=== PATIENT | female | born 1990 | race Caucasian/White ===

== ENCOUNTER 2016-07-14 21:28 | Emergency (ER) | payer MEDICAID, OTHER ==
[~2016-07-14] VITALS: Ht 172.7 cm; Wt 122.0 kg
[~2016-07-14 21:28] MED LIST: CITA20TA4 PO; LEVO25TA4 PO; NORE1TAB60 PO
[2016-07-14 21:49] VITALS: BP 131/92; PULSE 88; RESP 16; TEMP 99.1; O2SAT 98
[2016-07-14] MEDS ORDERED: MAGN-23 PO (21:56)
[2016-07-14] MEDS ORDERED: MULTTAB67 PO (21:56)
[2016-07-14] MEDS ORDERED: SODIUM CHLOR 0.9% 1000 ML INJ 1,000 ML IV SCH (22:07)
--- NOTE | 2016-07-14 22:13 | PD ---
HPI Chief Complaint: GI Complaint Time Seen by Provider: 21:56 Travel History International Travel<30 days: No Contact w/Intl Traveler<30days: No Traveled to known affect area: No History of Present Illness HPI 25 years old female complains of low abdominal pain, left side abdominal pain and rectal pain. Patient states that the pain started 2 days ago. Patient states the pain is combination of sharp pain in cramping pain localized on her rectal area, lower abdomen left side abdomen. Patient denies any pain radiation. Patient states that the pain has been constant. Patient noticed rectal bleeding yesterday morning and this evening. Patient denies any fever chills. Patient denies any chest pain or shortness of breath. Patient denies any nausea vomiting diarrhea. Patient denies any back pain. Patient denies any dysuria or frequency. Patient denies any vaginal discharge or bleeding. Patient was seen in emergency room a year ago with abdominal pain and rectal bleeding. Patient was given antibiotics with resolution of the symptoms. PFSH Past Medical History Anxiety: Yes Diabetes: No Diminished Hearing: No Thyroid Disease: Yes (HYPOTHYROIDISM) ?: Not LMP: 06/20/16 : 1 Para: 1 Ovarian Cysts: Yes Past Surgical History Section: Yes Oral Surgery: Yes (WISDOM TEETH) Other Surgery: Yes (CYST REMOVED FROM RIGHT HAND) Social History Alcohol Use: No Tobacco Use: No Substance Use: No Allergies-Medications (Allergen,Severity, Reaction): Coded Allergies: Morphine (Verified Allergy, Intermediate, "hallucinations", 07/14/16) Reported Meds & Prescriptions Reported Meds & Active Scripts Active Bypro (Hydrocodone-Acetaminophen) 5-325 mg Tab 1 Tab PO Q6H PRN Flagyl (Metronidazole) 500 Mg Tab 500 Mg PO TID Cipro (Ciprofloxacin HCl) 500 Mg Tab 500 Mg PO BID Reported [Magnesium Malate] 2 Tab PO DAILY Multiple Vitamin 1 Tab 1 Tab PO DAILY Loestrin 1/20 (Norethindrone-Ethinyl Estradiol) 1-20 Mg-Mcg Tab 1 Tab PO DAILY Citalopram (Citalopram Hydrobromide) 20 Mg Tab 20 Mg PO DAILY Levothyroxine (Levothyroxine Sodium) 25 Mcg Tab 25 Mcg PO DAILY Review of Systems General / Constitutional: No: Fever Eyes: No: Visual changes HENT: No: Headaches Cardiovascular: No: Chest Pain or Discomfort Respiratory: No: Shortness of Breath Gastrointestinal: Positive: Abdominal Pain, Hematochezia Genitourinary: No: Dysuria Musculoskeletal: No: Pain Skin: No Rash Neurologic: No: Weakness Psychiatric: No: Depression Endocrine: No: Polydipsia Hematologic/Lymphatic: No: Easy Bruising Physical Exam Narrative GENERAL: Well-nourished, well-developed patient. SKIN: Focused skin assessment warm/dry. HEAD: Normocephalic. EYES: No scleral icterus. No injection or drainage. NECK: Supple, trachea midline. No JVD or lymphadenopathy. CARDIOVASCULAR: Regular rate and rhythm without murmurs, gallops, or rubs. RESPIRATORY: Breath sounds equal bilaterally. No accessory muscle use. GASTROINTESTINAL: Abdomen soft, nondistended. Patient has mild to moderate tenderness on palpation lower abdomen. No rebound tenderness. No mass. Rectal exam patient has moderate tenderness on palpation perirectal area. Hemoccult negative. No mass noted. No induration or discharge noted rectal area. MUSCULOSKELETAL: No cyanosis, or edema. BACK: Nontender without obvious deformity. No CVA tenderness. Data Data Last Documented VS Vital Signs Date Time Temp Pulse Resp B/P Pulse Ox O2 Delivery O2 Flow Rate FiO2 07/14/16 23:34 98.6 83 16 118/68 99 Room Air Orders Complete Blood Count With Diff (07/14/16 22:07) Comprehensive Metabolic Panel (07/14/16 22:07) Lipase (07/14/16 22:07) Prothrombin Time / Inr (Pt) (07/14/16 22:07) Act Partial Throm Time (Ptt) (07/14/16 22:07) Urinalysis - C+S If Indicated (07/14/16 22:07) Ct Abd/Pel W Iv Contrast(Rout) (07/14/16 22:07) Iv Access Insert/Monitor (07/14/16 22:07) Ecg Monitoring (07/14/16 22:07) Oximetry (07/14/16 22:07) Ondansetron Inj (Zofran Inj) (07/14/16 22:15) Pantoprazole Inj (Protonix Inj) (07/14/16 22:15) Sodium Chlor 0.9% 1000 Ml Inj (Ns 1000 M (07/14/16 22:07) Hydromorphone Pf Inj (Dilaudid Pf Inj) (07/14/16 22:15) Ed Urine Pregnancytest Poc (07/14/16 22:07) Iohexol 350 Inj (Omnipaque 350 Inj) (07/14/16 23:36) Levofloxacin (Levaquin) (07/15/16 00:00) Labs Laboratory Tests Test 07/14/16 22:25 White Blood Count 8.3 TH/MM3 Red Blood Count 4.46 MIL/MM3 Hemoglobin 13.1 GM/DL Hematocrit 37.7 % Mean Corpuscular Volume 84.7 FL Mean Corpuscular Hemoglobin 29.4 PG Mean Corpuscular Hemoglobin 34.8 % Concent Red Cell Distribution Width 12.3 % Platelet Count 256 TH/MM3 Mean Platelet Volume 9.7 FL Neutrophils (%) (Auto) 56.5 % Lymphocytes (%) (Auto) 31.1 % Monocytes (%) (Auto) 6.5 % Eosinophils (%) (Auto) 3.1 % Basophils (%) (Auto) 2.8 % Neutrophils # (Auto) 4.7 TH/MM3 Lymphocytes # (Auto) 2.6 TH/MM3 Monocytes # (Auto) 0.5 TH/MM3 Eosinophils # (Auto) 0.3 TH/MM3 Basophils # (Auto) 0.2 TH/MM3 CBC Comment DIFF FINAL Differential Comment Prothrombin Time 10.4 SEC Prothromb Time International 0.9 RATIO Ratio Activated Partial 26.2 SEC Thromboplast Time Urine Color YELLOW Urine Turbidity CLEAR Urine pH 6.0 Urine Specific [place] 1.010 Urine Protein NEG mg/dL Urine Glucose (UA) NEG mg/dL Urine Ketones NEG mg/dL Urine Occult Blood NEG Urine Nitrite NEG Urine Bilirubin NEG Urine Leukocyte Esterase NEG Urine RBC 0-2 /hpf Urine WBC 0-2 /hpf Urine Squamous Epithelial 0-5 /hpf Cells Urine Bacteria NONE /hpf Microscopic Urinalysis Comment CULT NOT INDICATED Sodium Level 143 MEQ/L Potassium Level 4.0 MEQ/L Chloride Level 108 MEQ/L Carbon Dioxide Level 26.7 MEQ/L Anion Gap 8 MEQ/L Blood Urea Nitrogen 12 MG/DL Creatinine 0.82 MG/DL Estimat Glomerular Filtration 84 ML/MIN Rate Random Glucose 95 MG/DL Calcium Level 9.1 MG/DL Total Bilirubin 0.2 MG/DL Aspartate Amino Transf 13 U/L (AST/SGOT) Alanine Aminotransferase 19 U/L (ALT/SGPT) Alkaline Phosphatase 101 U/L Total Protein 7.2 GM/DL Albumin 3.5 GM/DL Lipase 250 U/L [facility] Medical Decision Making Medical Screen Exam Complete: Yes Emergency Medical Condition: Yes Interpretation(s) 23:26 PM. CBC within normal limit. CMP within normal limit. UA is negative. Differential Diagnosis Differential diagnosis including colitis, enteritis, hemorrhoid, proctitis, perianal abscess. Narrative Course 25 years old female with abdominal pain, rectal pain and rectal bleeding. Normal saline solution 1 25 cc an hour. Dilaudid 1 mg IV. Zofran 4 mg IV. Protonix 40 mg IV. Levaquin 750 mg by mouth given. Diagnosis Primary Impression: Colitis Patient Instructions: General Instructions Additional Instructions: Take medication as directed. Follow-up with personal physician. Return if worse. Follow up with GI specialist. Med/Other Pt SpecificInfo: Prescription(s) given Scripts Hydrocodone-Acetaminophen (Bypro)5-325 mg Tab1 Tab PO Q6H PRN (PAIN) #12 TAB Ref 0 Prov:Jack Henry MD 07/14/16 Metronidazole (Flagyl)500 Mg [id number] Mg PO TID #30 TAB Ref 0 Prov:Jack Henry MD 07/14/16 Ciprofloxacin (Cipro)500 Mg [id number] Mg PO BID #20 TAB Ref 0 Prov:Jack Henry MD 07/14/16 Disposition: 01 DISCHARGE HOME Condition: Stable Jack Henry MD Jul 14, 2016 22:13
[2016-07-14] MEDS ORDERED: PANTOPRAZOLE SODIUM 40 MG VIAL IVP ONE (22:15)
[2016-07-14] MEDS ORDERED: ONDANSETRON HCL 4 MG/2 ML VIAL IVP ONE (22:15)
[2016-07-14] MEDS ORDERED: HYDROmorphone HCL PF 1 MG/ML VIAL IVS ONE (22:15)
[2016-07-14 22:40] LABS: AUTOMATED NEUTROPHIL # 4.7 TH/MM3 (1.8-7.7); BASOPHIL # 0.2 TH/MM3 (0-0.2); BASOPHIL % 2.8 % (0.0-2.0); EOSINOPHIL # 0.3 TH/MM3 (0-0.4); EOSINOPHIL % 3.1 % (0.0-4.0); HEMATOCRIT 37.7 % (35.0-46.0); LYMPH % 31.1 % (9.0-44.0); LYMPHOCYTE # 2.6 TH/MM3 (1.0-4.8); MEAN CELL VOLUME 84.7 FL (80.0-100.0); MEAN CORPUSCULAR HEMOGLOBIN 29.4 PG (27.0-34.0); MEAN CORPUSCULAR HGB CONC 34.8 % (32.0-36.0); MONO % 6.5 % (0.0-8.0); NEUT % 56.5 % (16.0-70.0); PLATELET COUNT 256 TH/MM3 (150-450); RED BLOOD COUNT 4.46 MIL/MM3 (4.00-5.30); RED CELL DISTRIBUTION WIDTH 12.3 % (11.6-17.2); WHITE BLOOD COUNT 8.3 TH/MM3 (4.0-11.0)
[2016-07-14 22:41] LABS: HEMO FLAGS DIFF FINAL
[2016-07-14 22:45] LABS: BLOOD, URINE NEG (NEG); GLUCOSE,URINE NEG (NEG); KETONE, URINE NEG (NEG); NITRITE,URINE NEG (NEG)
[2016-07-14 22:46] VITALS: PULSE 77; RESP 16; O2SAT 98
[2016-07-14 22:47] LABS: CHLORIDE 108 MEQ/L (98-107); SODIUM (NA) 143 MEQ/L (136-145)
[2016-07-14 22:51] LABS: ANION GAP 8 MEQ/L (5-15); BICARBONATE 26.7 MEQ/L (21.0-32.0)
[2016-07-14 22:52] LABS: BLOOD UREA NITROGEN 12 MG/DL (7-18)
[2016-07-14 22:53] LABS: APTT (PATIENT) 26.2 SEC (24.3-30.1); INTERNATIONAL NORMALIZED RATIO 0.9 RATIO; PROTHROMBIN TIME - PATIENT 10.4 SEC (9.8-11.6); RBC, URINE 0-2 /hpf (0-3); SQUAMOUS EPITHELIAL CELL URINE 0-5 /hpf (0-5); URINE COLOR YELLOW (YELLW/STRAW); WBC, URINE 0-2 /hpf (0-5)
[2016-07-14 22:54] LABS: ALT (GPT) 19 U/L (10-53); AST (GOT) 13 U/L (15-37); COMMENT (UR) CULT NOT INDICATED; CULTURE IF INDICATED CULT NOT INDICATED; GLOMERULAR FILTRATION RATE 84 ML/MIN (>89)
[2016-07-14 22:56] LABS: TOTAL BILIRUBIN ADULT 0.2 MG/DL (0.2-1.0)
[2016-07-14 22:57] LABS: ALKALINE PHOSPHATASE 101 U/L (45-117)
[2016-07-14 23:34] VITALS: BP 118/68; PULSE 83; RESP 16; TEMP 98.6; O2SAT 99
[2016-07-14] MEDS ORDERED: IOHEXOL 350 MG/ML 10 ML VIAL (for RAD DIAG) IV ONE (23:36)
--- NOTE | 2016-07-14 23:51 | RADHPO ---
EXAM DATE/TIME: 07/14/2016 23:12 [place] COMPARISON: CT ABDOMEN & PELVIS W CONTRAST, May 20, 2015, 16:04. INDICATIONS : Rectal pain and bleeding. IV CONTRAST: 73 cc Omnipaque 350 (iohexol) IV ORAL CONTRAST: No oral contrast ingested. RADIATION DOSE: 22.32 CTDIvol (mGy) MEDICAL HISTORY : None SURGICAL HISTORY : None. ENCOUNTER: Initial ACUITY: 2 days PAIN SCALE: 5/10 LOCATION: Perianal TECHNIQUE: Volumetric scanning of the abdomen and pelvis was performed. Using automated exposure control and ad justment of the mA and/or kV according to patient size, radiation dose was kept as low as reasonably achievable to obtain optimal diagnostic quality images. FINDINGS: CT Abdomen: The liver, spleen, pancreas, kidneys, adrenals are unremarkable. There is no evidence for any appreciable pathological adenopathy, free fluid, or bowel obstruction. CT pelvis: There is no evidence for mass, abscess formation, or any significant adenopathy within the pelvis. There may be small cysts in the right ovary. CONCLUSION: Essentially unremarkable study. Maria R López MD on July 14, 2016 at 23:46 Board Certified Radiologist. This report was verified electronically.
[2016-07-14] MEDS ORDERED: CIPR-9 PO (23:57)
[2016-07-14] MEDS ORDERED: METR-1 PO (23:57)
[2016-07-14] MEDS ORDERED: NORC5TAB PO (23:57)
[2016-07-15] MEDS ORDERED: LEVOFLOXACIN 750 MG TAB PO ONE
== END 2016-07-15 00:09 | disposition home or self-care (01) ==
LOC: PHED 21:28
DX: K52.9 Noninfective gastroenteritis and colitis, unspecified (principal); E03.9 Hypothyroidism, unspecified
CPT/HCPCS: 74177; 80053; 81001; 83690; 84703; 85025; 85610; 85730; 96361; 96374; 96375; 99285; C9113; J1170; J2405; J7030; Q9967